=== PATIENT | female | born 1960 | race Caucasian/White ===

== ENCOUNTER 2017-06-11 00:19 | Emergency (ER) | payer OTHER ==
[~2017-06-11] VITALS: Ht 157.5 cm; Wt 66.4 kg
[2017-06-11 00:21] VITALS: Ht 157.5 cm; Wt 66.4 kg
[2017-06-11] MEDS ORDERED: LIDOCAINE/MYLANTA 40 ML BTL PO STA (01:16)
[2017-06-11 02:10] VITALS: BP 139/82; PULSE 82; RESP 18; TEMP 98.4
[2017-06-11] MEDS ORDERED: LIDO20SO19 MM (02:22)
--- NOTE | 2017-06-11 02:25 | ERD ---
ER Documentation Chief Complaint Chief Complaint EPIGASTRIC PAIN X1 HR. RAN OUT OF GERD MEDS HPI This is a 57-year-old female with a history of reflux who takes Protonix. She says that she skipped a few days of doses. He is having some burning epigastric pain after meals with no radiation. No chest pain shortness of breath. She has had this chronically and is flaring up she says. No vomiting nausea diarrhea or melena ROS All systems reviewed and are negative except as per history of present illness. 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 ago(pituitary gland), hysterectomy , kidney) Anesthesia Reaction: No Hx Neurological Disorder: No Hx Respiratory Disorders: No Hx Cardiac Disorders: No Hx Psychiatric Problems: No Hx Miscellaneous Medical Probl: Yes (GERD) Hx Alcohol Use: No Hx Substance Use: No Hx Tobacco Use: No Smoking Status: Never smoker FmHx Family History: No coronary disease Physical Exam Vitals Vital Signs Date Time Temp Pulse Resp B/P Pulse Ox O2 Delivery O2 Flow Rate FiO2 06/11/17 02:10 98.4 82 18 139/82 99 Room Air 06/11/17 00:21 97.0 75 20 145/79 100 Physical Exam Const: Well-developed, well-nourished Head: Atraumatic, normocephalic Eyes: Normal Conjunctiva, PERRLA, EOMI, normal sclera, no nystagmus ENT: Normal External Ears, Nose and Mouth, moist mucus membranes. Neck: Full range of motion. No meningismus, no lymphadenopathy. Resp: Clear to auscultation bilaterally, no wheezing, rhonchi, rales Cardio: Regular rate and rhythm, no murmurs, S1 S2 present Abd: Soft, mild epigastric tenderness, non distended. Normal bowel sounds, no guarding or rebound, no pulsitile abdominal masses or bruits Skin: No petechiae or rashes, no ecchymosis , no maculopapular rash Back: No midline or flank tenderness Ext: No cyanosis, or edema, FROM x 4, normal inspection, neurovascularly intact x 4 Neur: Awake and alert, STR 5/5 x 4, sensation intact x 4, no focal findings, cerebellum intact Psych: Normal Mood and Affect Results 24 hrs Current Medications Medications (Trade) Dose Ordered Sig/Lana Route PRN Reason Start Time Stop Time Status Last Admin Dose Admin Miscellaneous Medication (Gi Cocktail (2)) 40 ml ONCE STAT PO 06/11/17 01:16 06/11/17 01:17 DC 06/11/17 01:24 Procedures/MDM Patient received a GI cocktail and her pain is 0 out of 10. Patient has gastritis/peptic ulcer disease will treat with some viscous lidocaine before meals mixed with Maalox. The patient has Protonix at home Departure Diagnosis: Primary Impression: Gastritis Gastritis type: unspecified gastritis Chronicity: acute Gastritis bleeding : presence of bleeding unspecified Qualified Code: K29.00 - Acute gastritis, presence of bleeding unspecified, unspecified gastritis type Condition: Stable Patient Instructions: Gastritis Vs. Ulcer SAVANNAH DIALLO DO Jun 11, 2017 02:25
== END 2017-06-11 02:39 | disposition home or self-care (01) ==
LOC: E/R 00:19
DX: K29.00 Acute gastritis without bleeding (principal)
CPT/HCPCS: Z7502; Z7610; 99283